=== PATIENT | female | born 1955 | race Caucasian/White ===

== ENCOUNTER 2020-07-31 18:47 | Outpatient (CLI) | payer MEDICARE, OTHER | END 2020-07-31 23:59 | disposition home or self-care (01) | LOC: D.MAMMO 18:47 | PROVIDERS: ATTEND Family Medicine | DX: Z12.31 Encounter for screening mammogram for malignant neoplasm of breast (principal) ==

== ENCOUNTER → 2020-10-06 13:40 | Outpatient (CLI) | payer MEDICARE, OTHER | END | disposition home or self-care (01) | LOC: D.MRI 13:40 | PROVIDERS: ATTEND Nurse Practitioner Family | DX: M87.851 Other osteonecrosis, right femur (principal) ==

== ENCOUNTER → 2020-10-24 08:27 | Day surgery (SDC) | payer MEDICARE, OTHER ==
--- NOTE | 2020-10-23 13:07 | NUR ---
CONFIRMED PT RIGHT HIP INJECTION FOR 10/24/20 ALLERGIES: SULFA THINNERS: NONE ARRIVAL TIME: 0800
--- NOTE | ~2020-10-24 | HEMODYNAMI ---
PATIENT:GIOVANNY GOLD MEDICAL RECORD: [id number] : 51 [facility]ATION:[facility] ADMISSION DATE: 10/24/20 Generatedon:19:20 Patient name: GIOVANNY GOLD Patient #: [id number] SSN: : 1955 Date of study: 10/24/2020 Page: Of Hemodynamic Procedure Report Patient Data Patient Demographics Procedure consent was obtained First Name: GIOVANNY Gender: Female Last Name: ASIF : 1955 Middle Initial: FAZAL Age: 65 year(s) Patient #: [id number] Race: Unknown Additional ID: [id number] Contact details [address]: [address] [place] [address] rd State: [place] City: [place] Zip code: [address] Admission Admission Data Admission Date: 10/24/2020 Admission Time: 8:27 Procedure Procedure Types Cath Procedure Peripheral Cath Diagnostic Procedure Miscellaneous Aspiration/Injection (Joint) Procedure Description Procedure Date Procedure Date: 10/24/2020 Procedure Start Time: 9:06 Procedure Staff Name Function Bernard Romero RT Monitor Allie Wheeler MD Performing Physician Procedure Data Cath Procedure Fluoroscopy Diagnostic fluoroscopy Total fluoroscopy Time: 1.5 time: 1.5 min min Diagnostic fluoroscopy Total fluoroscopy dose: 10 dose: 10 mGy mGy Contrast Material Contrast Material Type Amount (ml) Isovue 200 8 Hemodynamics Rest Pre Cath Intra NCS Post Cath Procedure Log Time Note 8:58:27 Bernard Romero RT (R) (CV) sent for patient. Start room use. 8:58:30 Time tracking: Regular hours (M-F 7:00 - 5:00) 8:58:34 Patient received from Other to IR Alert and oriented. Tansferred to table in Supine position. 8:58:37 Signed procedure consent form obtained from patient. 8:58:45 SAFE-T PLUS MYELOGRAM TRAY opened to sterile field. 8:58:49 Correct patient and procedure confirmed by team. 8:58:52 Full Disclosure recording started 8:58:53 8:58:54 Pre-op teaching completed and patient verbalized understanding. 8:58:54 Pre-procedure instructions explained to patient. 8:59:07 PT STATES ALLERGIC TO SULFA 8:59:33 Is patient on blood thinner?No 8:59:45 Right Hip was prepped with betadine and draped in sterile fashion. 9:06:05 Physician arrived 9:06:06 Final Timeout: patient, procedure, and site verified with staff and physician. All members of the team are in agreement. 9:06:06 --------ALL STOP TIME OUT------ 9:06:09 Right groin site verified by team. 9:06:17 Sedation plan: Local Anesthetic Medication:Lidocaine 9:06:41 Procedure started. 9:06:47 Local anesthetic to Right Hip with Lidocaine 1% by Allie Wheeler MD.INITIAL ACCESS ONLY 9:16:01 Procedure ended.(Physican Out) 9:16:26 BANDAIDE APPLIED SITE STABLE PT SENT HOME 9:17:25 Fluoroscopy time 01.50 minutes. 9:17:27 Fluoroscopy dose: 10 mGy 9:17:27 Flurop Dose total: 10 9:17:51 Full Disclosure recording stopped 9:20:15 Contrast amount:Isovue 200 8ml. Device Usage Item Name Manufacture Quantity Catalog Hospital Part Current Minimal Lot# / Number Charge Number Stock Stock Serial# Code SAFE-T [employer] 1 [id number] PLUS MYELOGRAM TRAY Signature Audit [place] Stage Time Signature Unsigned Intra-Procedure 10/24/2020 Bernard Romero RT 9:17:44 AM [place] RT (R) (CV) 10/24/2020 (R) (CV) 9:20:09 AM Intra-Procedure 10/24/2020 Bernard 9:20:44 AM Nick RT (R) (CV) [facility] [address] [place] [address]
== END | disposition home or self-care (01) ==
LOC: D.RAD 08:27
PROVIDERS: ATTEND Nurse Practitioner Family
DX: M16.11 Unilateral primary osteoarthritis, right hip (principal)